=== PATIENT | male | born 1995 | race Caucasian/White ===

== ENCOUNTER 2016-11-13 19:08 | Emergency (ER) | payer MEDICAID ==
[~2016-11-13] VITALS: Ht 162.6 cm; Wt 60.9 kg
[2016-11-13 19:11] VITALS: Ht 162.6 cm; Wt 60.9 kg
[2016-11-13 19:24] VITALS: BP 119/81; PULSE 74; RESP 18
--- NOTE | 2016-11-13 19:44 | ERD ---
ER Documentation Chief Complaint Date/Time DATE: 11/13/16 TIME: 19:44 Chief Complaint BIBA [id number], near syncope after receiving a shot for acne HPI Patient is a 21-year-old male with no medical problems who presents with near syncope. The patient was brought in by ambulance. He felt dizzy and had near syncope but did not fully pass out. He received a doxycycline injection today for pimples on his face just prior to this episode. He came from home. His mother poured water over his head to that he would wake up. He felt dizzy prior to this episode happening and said that he "felt since his going out". He said that he feels okay now other than feeling warm. His primary doctor is Dr. Abdi Vaughn. ROS All systems reviewed and are negative except as per history of present illness. Allergies Allergies: Coded Allergies: No Known Allergy (Unverified , 11/13/16) PMhx/Soc Medical and Surgical Hx: pt denies Medical Hx History of Surgery: No Anesthesia Reaction: No Hx Neurological Disorder: No Hx Respiratory Disorders: No Hx Cardiac Disorders: No Hx Psychiatric Problems: No Hx Miscellaneous Medical Probl: No Hx Alcohol Use: No Hx Substance Use: No Hx Tobacco Use: No Smoking Status: Never smoker FmHx Negative for Brugada syndrome or Pqott-Auxayhhfk-Wbnfn Family History: No diabetes Physical Exam Vitals Vital Signs Date Time Temp Pulse Resp B/P Pulse Ox O2 Delivery O2 Flow Rate FiO2 11/13/16 19:24 74 18 119/81 100 Room Air 11/13/16 19:11 99.3 83 18 139/91 100 Physical Exam Const: [] Head: Atraumatic Eyes: Normal Conjunctiva ENT: Normal External Ears, Nose and Mouth. Neck: Full range of motion..~ No meningismus. Resp: Clear to auscultation bilaterally Cardio: Regular rate and rhythm, no murmurs Abd: Soft, non tender, non distended. Normal bowel sounds Skin: No petechiae or rashes Back: No midline or flank tenderness Ext: No cyanosis, or edema Neur: Awake and alert Psych: Normal Mood and Affect Results 24 hrs Laboratory Tests Test 11/13/16 19:32 Bedside Glucose 112mg/dL Procedures/[facility] EKG read by me: Rate/Rhythm: Regular rate and rhythm at a rate of 74 Intervals: Normal Impression: No evidence of ischemia or arrhythmia Accu-Chek is normal at 112. Patient is a 21-year-old male who presents with near syncope. The patient has a normal sugar and I doubt hypo-or hyperglycemia. The patient has a normal EKG and I see no signs of ischemia or arrhythmia. At this point I doubt significant arrhythmia such as ventricular fibrillation or ventricular tachycardia. I believe outpatient management is appropriate. This may have been related to his recent injection and a vasovagal syncope. In any case I believe that outpatient management is appropriate but he will need close follow- up with his primary doctor within 24-48 hours for reevaluation. He can return sooner for any worsening symptoms. Departure Diagnosis: Primary Impression: Near syncope Condition: Fair Patient Instructions: Near Syncope, Unknown Referrals: Dr. Abdi Vaughn Additional Instructions: Call your primary care doctor TOMORROW for an appointment during the next 1-2 days.See the doctor sooner or return here if your condition worsens before your appointment time. CLARISA MAS MD Nov 13, 2016 19:44
== END 2016-11-13 20:01 | disposition home or self-care (01) ==
LOC: E/R 19:08
DX: R55 Syncope and collapse (principal)
CPT/HCPCS: 82962; 93005; Z7502